=== PATIENT | male | born 1995 | race Caucasian/White ===

== ENCOUNTER 2020-01-24 17:57 | Emergency (ER) | payer SELFPAY ==
[~2020-01-24] VITALS: Ht 177.8 cm; Wt 95.5 kg
[~2020-01-24 17:57] MED LIST: MUCINEX 60600 MG/TA1 PO; NO HOME MEDICATIONS
[2020-01-24 18:06] VITALS: BP 136/80; TEMP 98.5
[2020-01-24] MEDS ORDERED: ELIMITE TOP (18:46)
[2020-01-24] MEDS ORDERED: PREDNISONE20 MG PO (18:46)
[2020-01-24 18:55] VITALS: PULSE 85
== END 2020-01-24 18:56 | disposition home or self-care (01) ==
LOC: COL.ER 17:57
DX: L50.9 Urticaria, unspecified (principal); B86 Scabies
CPT/HCPCS: J7512